=== PATIENT | male | born 1990 | race Caucasian/White ===

== ENCOUNTER 2022-09-20 16:37 | Emergency (ER) | payer OTHER ==
[2022-09-20 16:51] VITALS: BP 123/76; PULSE 78; RESP 18; TEMP 98.1; BMI 25.0
[2022-09-20] MEDS ORDERED: FLUORESCEIN NA 1 EA STRIP OS ONE (17:27)
[2022-09-20] MEDS ORDERED: TETRACAINE 0.5% HCL 0.6ML DROPPER.BOTTLE OS ONE (17:27)
[2022-09-20] MEDS ORDERED: TETRACAINE 0.5% OPHTH SOLN 2 ML BOTTLE ONE (17:27)
[2022-09-20] MEDS ORDERED: FLUORESCEIN NA 1 EA STRIP ONE (17:27)
[2022-09-20] MEDS ORDERED: ACETAMINOPHEN 500 MG TABLET (FP) PO ONE (17:42)
[2022-09-20] MEDS ORDERED: ACETAMINOPHEN 500 MG TABLET (FP) ONE (17:43)
== END 2022-09-20 18:48 | disposition home or self-care (01) ==
LOC: JERFT 16:37
DX: H57.12 Ocular pain, left eye (principal); H57.89 Other specified disorders of eye and adnexa
CPT/HCPCS: 99283-25